=== PATIENT | female | born 1975 | race Asian ===

== ENCOUNTER 2022-03-31 06:51 | Day surgery (SDC) | payer BC ==
[~2022-03-31 06:51] MED LIST: Lactated Ringers 1,000 ML IV SCH; Sodium Chloride 0.9% 10 ML Syringe FLUSH PRN
[2022-03-31] MEDS ORDERED: Propofol 200 MG/20 ML SDV IV ONE (06:52)
== END 2022-03-31 09:20 | disposition home or self-care (01) ==
LOC: FB.SDS 06:51
PROVIDERS: ATTEND Surgery
DX: K29.00 Acute gastritis without bleeding (principal); K29.80 Duodenitis without bleeding; K20.90 Esophagitis, unspecified without bleeding; Z80.0 Family history of malignant neoplasm of digestive organs
CPT/HCPCS: 00731; 43239; 88304; 88305; 88342; J2704; J7120